=== PATIENT | male | born 1950 | race Caucasian/White ===

== ENCOUNTER → 2024-09-10 14:58 | Outpatient (CLI) | payer MEDICARE, OTHER, SELFPAY ==
--- NOTE | 2024-09-10 15:08 | DI.NM.S_ITS ---
PROCEDURE: NM ALBERTO PERF SPECT REST & STR Rest and exercise myocardial perfusion SPECT with gated imaging and ejection fraction RADIOPHARMACEUTICAL: 26.3 mCi Tc-99m sestamibi IV at rest and 27.5 mCi Tc-99m sestamibi IV at peak exercise. A 2 day-protocol was performed. INDICATIONS: FORMER SMOKER TECHNIQUE: Radiopharmaceutical was injected at peak stress test, and also at rest. SPECT images were obtained. SPECT myocardial perfusion images were displayed in short axis, horizontal long axis, and vertical long axis views. Gated images were reviewed using [employer] software. COMPARISON: None. CARDIAC STRESS: A standard Jae treadmill exercise tolerance test was performed by the patient under the supervision of an attending staff. The patient exercised for 13 minutes and 0 seconds; 14.8 METS; functional aerobic impairment (KATERINA) is -81%. Hemodynamic data: There is normal blood pressure and heart rate response to exercise stress. Patient achieved 108% of maximum predicted heart rate at peak exercise. Peak blood pressure 170/74. Symptoms: Patient denied chest pain during exercise. EKG: No diagnostic EKG changes of ischemia; no ectopy. FINDINGS: Raw data: There is good myocardial labeling by radiotracer. No significant motion artifacts. Ryfn-jw-ywrwx ratio is 0.32 (normal is less than 0.38 for sestamibi tracer, and less than 0.50 for thallium tracer). Left ventricle function: Gated images demonstrate normal left ventricle wall thickening. No segmental wall motion abnormality. No transient ischemic dilation; TID is 0.7 (normal less than 1.3). The left ventricle resting end-diastolic volume is 109 mL. Left ventricle stress ejection fraction is 72%; normal values are above 45%. Myocardial perfusion: There is a medium sized, mild intensity fixed inferoseptal wall defect that resolves in prone imaging. No reversible perfusion defects. IMPRESSION: Low risk study. No evidence of exercise-induced ischemia on ECG or SPECT imaging. The fixed inferoseptal wall defect completely resolves in prone imaging making this most consistent with attenuation artifact. Normal LV size and function. Normal hemodynamic response. Excellent exercise capacity. Dictated by: Laney Servin D.O. on 09/17/2024 at 16:14 Approved by: Laney Servin D.O. on 09/17/2024 at 16:17
--- NOTE | 2024-09-10 15:08 | DI.US.S_ITS ---
PROCEDURE: US ABD AORTA ANEURYSM SCREEN INDICATIONS: FORMER SMOKER TECHNIQUE: Real time scanning was performed of the aorta and iliac arteries, with image documentation. COMPARISON: None. FINDINGS: Aorta: Proximal aortic diameter measures 2.1 cm. Mid-aorta measures 2.1 cm. Distal aortic diameter is 1.8 cm. Iliac arteries: Right common iliac artery measures 1.1 cm. Left common iliac artery measures 1 cm. IMPRESSION: No aneurysm seen. Dictated by: Jh Johnson M.D. on 09/10/2024 at 19:56 Approved by: Jh Johnson M.D. on 09/10/2024 at 19:57
== END ==
PROVIDERS: PCP Nurse Practitioner Family; Referring Provider Internal Medicine Cardiovascular Disease; Visit Provider Internal Medicine Cardiovascular Disease
DX: Z13.6 Encounter for screening for cardiovascular disorders (principal); Z87.891 Personal history of nicotine dependence; R42 Dizziness and giddiness; R00.1 Bradycardia, unspecified
CPT/HCPCS: 76706; 78452; 93017; A9502

== ENCOUNTER → 2024-09-17 12:19 | Outpatient (CLI) | payer MEDICARE, OTHER, SELFPAY ==
--- NOTE | 2024-09-17 12:21 | DI.ECHO.S_ITS ---
[facility] : : [address] : : [place] : : [id number] : : Phone: [phone] Echocardiogram Report + + :Name: EZE MONROE Study Date: 09/17/2024 Height: 68 in : :Hospital ReadingLocation: Weight: 153 lb: : Gender: Male BSA: 1.8 m2 : :: 1950 Age: 73 yrs : :Reason For Study: DIZZINESS : :Ordering Physician: TARUN, : :LANEY Leavitt Performed By: Orlando Delgado : :Referring: LANEY MCNEIL : + + Interpretation Summary The ejection fraction is estimated to be 55-60%. Diastolic parameters suggest probable normal left ventricular diastolic function and normal filling pressures. The left atrium is mildly dilated. The right ventricle is normal in size and function. There is mild tricuspid regurgitation. The right ventricular systolic pressure is estimated to be at least 30 mmHg based on an estimated right atrial pressure of 3 mm Hg. Procedure: A two-dimensional transthoracic echocardiogram with color flow and Doppler was performed. The study quality was technically good. There is no prior echocardiogram noted for this patient. The patient was in normal sinus rhythm during the exam. Left Ventricle: The left ventricle is normal in size. There is normal left ventricular wall thickness. There is no ventricular septal defect visualized. The ejection fraction is estimated to be 55-60%. There are no focal wall motion abnormalities. Diastolic parameters suggest probable normal left ventricular diastolic function and normal filling pressures. Right Ventricle: The right ventricle is normal in size and function. Atria: The left atrium is mildly dilated. Right atrial size is normal. There is no Doppler evidence for an interatrial shunt. Mitral Valve: The mitral valve leaflets appear normal. There is no evidence of stenosis, fluttering, or prolapse. There is mild mitral annular calcification. There is no mitral regurgitation noted. Aortic Valve: The aortic valve is trileaflet. The aortic valve opens well. There is no aortic valve stenosis. No aortic regurgitation is present. Tricuspid Valve: The tricuspid valve leaflets are thin and pliable. There is mild tricuspid regurgitation. The right ventricular systolic pressure is estimated to be at least 30 mmHg based on an estimated right atrial pressure of 3 mm Hg. Pulmonic Valve: The pulmonic valve is not well seen, but is grossly normal. There is no pulmonic valvular regurgitation. Great Vessels: The aortic root is normal size. The dimensions of the ascending aorta are normal. The pulmonary artery is normal size. The IVC is of normal diameter and collapses greater than 50% with a sniff. This suggests a low right atrial pressure of 3 mm Hg. Pericardium/ Pleura There is no pericardial effusion. There is no pleural effusion. MMode/2D Measurements & Calculations LVIDd: 5.3 cm LVOT diam: 2.2 cm LVIDs: 3.7 cm Ao root diam: 3.3 cm FS: 31.1 % asc Aorta Diam: 3.8 cm EPSS: 0.65 cm Ao Arch Diam (Prox Trans): 1.5 cm IVSd: 0.86 cm LVPWd: 0.84 cm LV mora. diameter/BSA (cm/m^2): 2.9 LV sys. diameter/BSA (cm/m^2): 2.0 LA A2 area: 24.4 cm2 RA long axis: 5.3 cm LA A4 area: 19.4 cm2 RA area: 18.0 cm2 LA length (vol): 5.9 cm RA vol: 52.3 ml LA vol: 67.5 ml RA : 28.7 ml/m2 LA vol index: 37.0 ml/m2 IVC diam: 1.9 cm RVD1 (basal): 3.6 cm RVD2 (mid): 3.0 cm TAPSE: 2.7 cm Doppler Measurements & Calculations Ao V2 max: 132.9 cm/sec LVOT Max Garret: 100.3 cm/sec Ao V2 mean: 87.4 cm/sec LV V1 max P.0 mmHg Ao max P.1 mmHg LV V1 VTI: 24.7 cm Ao mean P.4 mmHg TEVIN(I,D): 3.5 cm2 Ao V2 VTI: 27.6 cm TEVIN(V,D): 2.9 cm2 sev ratio: 0.89 TEVIN indexed to BSA (cm^2/m^2): 1.9 MV E max garret: 61.7 cm/sec TR max garret: 258.9 cm/sec MV A max garret: 68.3 cm/sec TR max P.8 mmHg MV E/A: 0.90 PA V2 max: 104.8 cm/sec Med Peak E' Garret: 7.5 cm/sec PA V2 mean: 70.7 cm/sec E/E' med: 8.2 PA mean P.2 mmHg Lat Peak E' Garret: 10.9 cm/sec PA pr(Accel): 20.8 mmHg E/E' lat: 5.6 E/e' average: 6.9 MV dec time: 0.16 sec SV(LVOT): 95.4 ml Reading Physician:03:29 PM
== END ==
PROVIDERS: PCP Nurse Practitioner Family; Referring Provider Internal Medicine Cardiovascular Disease; Visit Provider Internal Medicine Cardiovascular Disease
DX: I07.1 Rheumatic tricuspid insufficiency (principal); R42 Dizziness and giddiness
CPT/HCPCS: 93306